=== PATIENT | male | born 1950 | race Caucasian/White ===

== ENCOUNTER 2017-05-24 00:10 | Emergency (ER) | payer MEDICARE, OTHER ==
[2017-05-24] MEDS ORDERED: Aspirin 81 MG Tab.Chew PO ONE (00:35)
--- NOTE | 2017-05-24 00:42 | EDM.PDOC ---
[id number] 4d CHEST PAIN/SOB Time Seen by Provider: 05/24/17 00:35 Source of Information: Reports: Patient History Limitations: Reports: No Limitations - History of Present Illness INITIAL COMMENTS - FREE TEXT/NARRATIVE: pt was at the [facility] and developed chest pressure earlier he had felt very anxious. He has a history of a Mi 9 years ago. He does have a history of anxiety. Onset: Today Duration: Hour(s):, Other (valerieire was at a 1-2) Location: Reports: Chest Associated Symptoms: Reports: Chest Pain, Other (pt did not feel belchy or did not get sweaty. ) - Related Data Allergies Allergy/AdvReac Type Severity Reaction Status Date / Time contrast Allergy Rash Uncoded 05/24/17 00:24 Home Meds: Home Meds ALPRAZolam [Xanax] 05/24/17 [History] Aspirin 81 mg PO DAILY 05/24/17 [History] Cholecalciferol (Vitamin D3) [Vitamin D] 05/24/17 [History] Fish Oil/[place]-3 Fatty Acids [Fish Oil 1,000 MG] 05/24/17 [History] Metoprolol Succinate [Toprol XL] 25 mg PO DAILY 05/24/17 [History] Nitroglycerin [Nitrostat] 0.3 g PO ASDIRECTED PRN 05/24/17 [History] Pramipexole [Mirapex] 0.5 mg PO DAILY 05/24/17 [History] Ubidecarenone [COQ-10] 05/24/17 [History] Vitamin B Complex [B Complex] 05/24/17 [History] Past Medical History HEENT History: Reports: Hard of Hearing Cardiovascular History: Reports: [place] Psychiatric History: Reports: Anxiety - Past Surgical History Cardiovascular Surgical History: Reports: Carotid Stents Social & Family History - Tobacco Use Smoking Status *Q: Never Smoker - Caffeine Use Caffeine Use: Reports: Soda - Recreational Drug Use Recreational Drug Use: No ED ROS GENERAL - Review of Systems Review Of Systems: See Below Constitutional: Reports: No Symptoms HEENT: Reports: No Symptoms Respiratory: Reports: Shortness of Breath, Other (He has good o2 sats. ) Cardiovascular: Reports: No Symptoms Endocrine: Reports: No Symptoms GI/Abdominal: Reports: No Symptoms : Reports: No Symptoms Musculoskeletal: Reports: No Symptoms ED EXAM, GENERAL - Physical Exam Exam: See Below Free Text/Narrative:: pt appeared quite anxious. He no longer had any chest pressure. Exam Limited By: No Limitations General Appearance: Alert, Anxious, Mild Distress Ears: Normal TMs Nose: Normal Inspection Throat/Mouth: Normal Inspection Head: Atraumatic Neck: Normal Inspection Respiratory/Chest: No Respiratory Distress Cardiovascular: Regular Rate, Rhythm GI/Abdominal: Soft, Non-Tender, No Distention (Male) Exam: No Hernia Rectal (Males) Exam: Deferred Back Exam: Normal Inspection Extremities: Normal Inspection Neurological: Alert, Oriented, Normal Cognition Psychiatric: Normal Affect Skin Exam: Warm Course - Vital Signs Last Recorded V/S: Last Vital Signs Temp 36.7 C 05/24/17 00:28 Pulse 57 L 05/24/17 02:12 Resp 16 05/24/17 01:39 BP 167/92 H 05/24/17 02:12 Pulse Ox 99 05/24/17 01:39 - Orders/Labs/Meds Labs: Laboratory Tests 05/24/17 05/24/17 05/24/17 Range/Units 00:34 00:34 00:34 WBC 9.9 (4.5-11.0) K/uL RBC 4.88 (4.30-5.90) M/uL Hgb 14.2 (12.0-15.0) g/dL Hct 42.6 (40.0-54.0) % MCV 87 (80-98) fL MCH 29 (27-31) pg MCHC 33 (32-36) % Plt Count 286 (150-400) K/uL Neut % (Auto) 58 (36-66) % Lymph % (Auto) 31 (24-44) % [place] % (Auto) 9 H (2-6) % Eos % (Auto) 1 L (2-4) % Baso % (Auto) 1 (0-1) % Sodium 140 (140-148) mmol/L Potassium 3.9 (3.6-5.2) mmol/L Chloride 105 (100-108) mmol/L Carbon Dioxide 26 (21-32) mmol/L Anion Gap 8.7 (5.0-14.0) mmol/L BUN 15 (7-18) mg/dL Creatinine 1.1 (0.8-1.3) mg/dL Est Cr Clr Drug Dosing 70.55 mL/min Estimated GFR (MDRD) > 60 (>60) Glucose 124 H (74-106) mg/dL Calcium 8.6 (8.5-10.1) mg/dL Total Bilirubin 0.4 (0.2-1.0) mg/dL AST 12 L (15-37) U/L ALT 19 (12-78) U/L Alkaline Phosphatase 51 (46-116) U/L Creatine Kinase 32 L (39-308) U/L Troponin I < 0.017 (0.000-0.056) ng/mL Total Protein 6.9 (6.4-8.2) g/dL Albumin 3.5 (3.4-5.0) g/dL Globulin 3.4 (2.3-3.5) g/dL Albumin/Globulin Ratio 1.0 L (1.2-2.2) Urine Color Urine Appearance Urine pH (4.5-8.0) Ur Specific [place] (1.008-1.030) Urine Protein (NEGATIVE) mg/dL Urine Glucose (UA) (NEGATIVE) mg/dL Urine Ketones (NEGATIVE) mg/dL Urine Occult Blood (NEGATIVE) Urine Nitrite (NEGAITVE) Urine Bilirubin (NEGATIVE) Urine Urobilinogen (NORMAL) mg/dL Ur Leukocyte Esterase (NEGATIVE) Urine RBC (0-5) Urine WBC (0-5) Ur Epithelial Cells Amorphous Sediment Urine Bacteria Urine Mucus 05/24/17 Range/Units 00:57 WBC (4.5-11.0) K/uL RBC (4.30-5.90) M/uL Hgb (12.0-15.0) g/dL Hct (40.0-54.0) % MCV (80-98) fL MCH (27-31) pg MCHC (32-36) % Plt Count (150-400) K/uL Neut % (Auto) (36-66) % Lymph % (Auto) (24-44) % [place] % (Auto) (2-6) % Eos % (Auto) (2-4) % Baso % (Auto) (0-1) % Sodium (140-148) mmol/L Potassium (3.6-5.2) mmol/L Chloride (100-108) mmol/L Carbon Dioxide (21-32) mmol/L Anion Gap (5.0-14.0) mmol/L BUN (7-18) mg/dL Creatinine (0.8-1.3) mg/dL Est Cr Clr Drug Dosing mL/min Estimated GFR (MDRD) (>60) Glucose (74-106) mg/dL Calcium (8.5-10.1) mg/dL Total Bilirubin (0.2-1.0) mg/dL AST (15-37) U/L ALT (12-78) U/L Alkaline Phosphatase (46-116) U/L Creatine Kinase (39-308) U/L Troponin I (0.000-0.056) ng/mL Total Protein (6.4-8.2) g/dL Albumin (3.4-5.0) g/dL Globulin (2.3-3.5) g/dL Albumin/Globulin Ratio (1.2-2.2) Urine Color Yellow Urine Appearance Clear Urine pH 5.0 (4.5-8.0) Ur Specific [place] 1.020 (1.008-1.030) Urine Protein Negative (NEGATIVE) mg/dL Urine Glucose (UA) Normal (NEGATIVE) mg/dL Urine Ketones Negative (NEGATIVE) mg/dL Urine Occult Blood Negative (NEGATIVE) Urine Nitrite Negative (NEGAITVE) Urine Bilirubin Negative (NEGATIVE) Urine Urobilinogen Normal (NORMAL) mg/dL Ur Leukocyte Esterase Negative (NEGATIVE) Urine RBC 0-5 (0-5) Urine WBC 0-5 (0-5) Ur Epithelial Cells Few Amorphous Sediment Not seen Urine Bacteria Few Urine Mucus Not seen Meds: Medications Discontinued Medications Generic Name Dose Route Start Last Admin Trade Name Milq PRN Reason Stop Dose Admin Aspirin 243 mg 05/24/17 00:35 05/24/17 00:43 Aspirin PO 05/24/17 00:36 243 mg ONETIME ONE Administration Lorazepam 0.25 mg 05/24/17 00:43 05/24/17 00:49 Ativan PO 05/24/17 00:44 0.25 mg ONETIME ONE Administration Metoprolol Succinate 12.5 mg 05/24/17 01:59 05/24/17 02:12 Toprol Xl PO 05/24/17 02:00 12.5 mg ONETIME ONE Administration - Re-Assessments/Exams Free Text/Narrative Re-Assessment/Exam: 05/24/17 02:01 pt was found to have a higher bp. He was anxious on arrival. He had normal lab work. His trop was normal. He was given another 12.5 of metaprol. Departure - Departure Time of Disposition: 02:15 Disposition: Home, Self-Care 01 Condition: Fair Clinical Impression: Panic attack, Coronary artery disease Instructions: Coronary Artery Disease, Male, Panic Attacks, [id number] Referrals: PCP,None [Primary Care Provider] - Forms: ED Department Discharge Care Plan Goals: send a copy of his labs with him. rtc if he should have further chest pain, keep appt with his physian for a Physical.
[2017-05-24] MEDS ORDERED: LORazepam 0.5 MG Tab PO ONE (00:43)
[2017-05-24] MEDS ORDERED: Metoprolol Succinate 25 MG Tab.ER PO ONE (01:59)
[2017-05-24 02:14] VITALS: BP 167/92
--- NOTE | 2017-05-24 09:00 | CR ---
Chest 1V Frontal HISTORY: sob COMPARISON: None FINDINGS: Mild linear interstitial changes at the lung bases bilaterally could represent atelectasis or scarri ng. Remainder the chest is clear. Cardiomediastinal silhouette is within normal limits. No vascular redistribution or pleural fluid can be seen. Bony structures and soft tissues are unremarkable. IMPRESSION: Mild linear interstitial changes at the lung bases bilaterally likely representing atelectasis or sc arring. No other acute chest abnormality is identified.
== END 2017-05-24 03:11 | disposition home or self-care (01) ==
LOC: JP.ED 00:10
DX: I25.10 Atherosclerotic heart disease of native coronary artery without angina pectoris (principal); F41.0 Panic disorder [episodic paroxysmal anxiety]; I25.2 Old myocardial infarction; Z95.4 Presence of other heart-valve replacement; Z79.899 Other long term (current) drug therapy; Z79.82 Long term (current) use of aspirin; Z91.041 Radiographic dye allergy status
CPT/HCPCS: 36415; 71010; 80053; 81001; 82550; 84484; 85025; 99285; A9270; 93010; 99283